=== PATIENT | female | born 1955 | race Caucasian/White ===

== ENCOUNTER → 2019-09-06 | Outpatient (CLI) | payer OTHER ==
[~2019-09-06] MED LIST: ATOR80 PO; AZOR; Aspir 8181 MG PO; BENAML20/5 PO; BP MED; BP PILL; BUPR100ER PO; CALCAVITDA PO; CENTRUM COMPLE1 EACH PO; CIPR500 PO; CLOP75 PO; CYCL10 PO; Chantix1 EACH PO; Citalopram HBr40 MG PO; ESCI10 PO; ESTPRO5 PO; HYDACE10B PO; HYDACE5 PO; HYOS0.375T PO; Hydrocodone-Ap1 EA20 PO; MORP15ER PO; MULVITMIND PO; OMEP20ER PO; OXYACE5T PO; PANT40 PO; PREG75 PO; PROM25 PO; Percocet 5-3251 EACH PO; Sudogest30 MG PO; TIZA4 PO; VALS80 PO; VITB100 PO; Zantac150 MG PO
[2019-09-06 14:24] LABS: U Amphetamine Screen Not Detected; U Barbituate Screen Not Detected; U Benzodiazapine Screen Not Detected; U Buprenorphine Screen Not Detected; U Cannabinoids Screen DETECTED; U Cocaine Screen Not Detected; U Methadone Screen Not Detected; U Methamphetamine Screen Not Detected; U Opiates Screen DETECTED; U Oxycodone Screen Not Detected; U Phencyclidine Screen Not Detected; U Propoxyphene Screen Not Detected
== END ==
LOC: LAB 10:07 → LAB SHORT 10:07
PROVIDERS: Family Medicine
DX: Z02.89 Encounter for other administrative examinations (principal); Z79.899 Other long term (current) drug therapy
CPT/HCPCS: G0480

== ENCOUNTER 2019-09-23 14:50 | Observation (INO) | payer OTHER ==
[~2019-09-23] VITALS: Ht 162.6 cm; Wt 74.1 kg
[~2019-09-23 14:50] MED LIST changes: -ATOR80 PO; -Aspir 8181 MG PO; -BUPR100ER PO; -CENTRUM COMPLE1 EACH PO; -CLOP75 PO; -Chantix1 EACH PO; -Citalopram HBr40 MG PO; -Hydrocodone-Ap1 EA20 PO; -PANT40 PO; -PREG75 PO; -Zantac150 MG PO
[2019-09-23 15:26] LABS: BASOPHILS ABSOLUTE AUTO 0.02 K/mm3 (0.00-0.23); BASOPHILS PERCENT AUTO 0 % (0-2); EOSINOPHILS ABSOLUTE AUTO 0.21 K/mm3 (0.00-0.68); EOSINOPHILS PERCENT AUTO 2 % (0-6); Hemoglobin 11.4 g/dL (11.5-16.0); IMMATURE GRAN ABSOLUTE AUTO 0.03 K/mm3 (0.00-0.10); IMMATURE GRAN PERCENT AUTO 0 % (0-1); LYMPHOCYTES ABSOLUTE AUTO 3.02 K/mm3 (0.84-5.20); LYMPHOCYTES PERCENT AUTO 35 % (21-46); MONOCYTES ABSOLUTE AUTO 0.39 K/mm3 (0.16-1.47); MONOCYTES PERCENT AUTO 5 % (4-13); Mean Corpuscular HGB 28.2 pg (26.0-34.0); Mean Corpuscular HGB Conc 31.7 g/dL (31.5-36.5); Mean Corpuscular Volume 89 fL (80-100); Mean Platelet Volume 10.9 fL (9.1-12.4); NEUTROPHILS ABSOLUTE AUTO 4.95 K/mm3 (1.96-9.15); NEUTROPHILS PERCENT AUTO 58 % (41-73); Platelet Count 186 K/mm3 (150-400); RDW Coefficient Variation 14.7 % (11.7-14.2); RDW Standard Deviation 48.4 fL (35.1-46.3); Red Blood Cell Count 4.04 M/mm3 (3.80-5.20); White Blood Cell Count 8.62 K/mm3 (4.00-11.30)
[2019-09-23 15:54] LABS: Alanine Aminotransfer (ALT/SGP 21 U/L (12-78); Albumin, Blood 3.5 g/dL (3.4-5.0); Alk Phos 72 U/L (50-136); Anion Gap 7 mmol/L (6-16); Aspartate Aminotrans (AST/SGOT 16 U/L (12-37); Bilirubin, Total 0.4 mg/dL (0.1-1.0); Blood Urea Nitrogen 13 mg/dL (8-24); Bun/Creatinine Ratio 19.3 (12.0-20.0); CO2, Blood 25 mmol/L (21-32); Calcium, Blood 8.9 mg/dL (8.5-10.1); Chloride, Blood 107 mmol/L (98-108); Creatinine, Blood 0.67 mg/dL (0.40-1.00); Globulin, Blood 3.6 g/dL (2.2-4.0); Glomerular Filtration Rate >60 (60-); Glucose, Blood 120 mg/dL (70-99); Potassium, Blood 3.8 mmol/L (3.5-5.5); Sodium, Blood 139 mmol/L (136-145); Total Protein, Blood 7.1 g/dL (6.4-8.2)
[2019-09-23 17:11] LABS: Source, Urine Clean Catch
[2019-09-23 17:18] LABS: Bilirubin, Urine Neg (Neg); Blood, Urine 1+ (Neg); Glucose Qualitative, Urine Neg (Neg); Ketones, Urine 1+ (Neg); Leukocyte Esterase, Urine 2+ (Neg); Nitrite, Urine Neg (Neg); Protein, Urine 1+ (Neg); Urobilinogen, Urine 1+ (Normal)
[2019-09-23 17:24] LABS: Appearance, Urine Clear (Clear); Color, Urine Yellow (P-Yellow)
[2019-09-23 17:25] LABS: Bacteria Mod /hpf; Mucus Light (0-Heavy); Red Blood Cells, Urine 0-2 /hpf (0-2); Squamous Epithelial Cells Few /hpf (Few)
[2019-09-23] MEDS ORDERED: PANT40 PO (19:46)
[2019-09-23] MEDS ORDERED: Citalopram HBr40 MG PO (19:47)
[2019-09-23] MEDS ORDERED: ATOR80 PO (19:47)
[2019-09-23] MEDS ORDERED: Chantix1 EACH PO (19:48)
[2019-09-23] MEDS ORDERED: Hydrocodone-Ap1 EA20 PO (19:50)
[2019-09-23] MEDS ORDERED: PREG75 PO (19:50)
[2019-09-23] MEDS ORDERED: BUPR100ER PO (19:51)
[2019-09-23] MEDS ORDERED: CLOP75 PO (19:53)
[2019-09-23] MEDS ORDERED: Zantac150 MG PO (19:54)
[2019-09-23] MEDS ORDERED: Aspir 8181 MG PO (19:54)
[2019-09-23] MEDS ORDERED: CENTRUM COMPLE1 EACH PO (20:41)
[2019-09-23 21:28] LABS: CHOL/HDL RATIO 2.6; Cholesterol 121 mg/dL (50-200); HDL Cholesterol 46 mg/dL (>39); Low Density Lipoprotein Chol 48 mg/dL (0-110); Triglycerides 134 mg/dL (30-160); Very Low Density Lipoprot Chol 26 mg/dL (6-32)
--- NOTE | 2019-09-24 06:34 | NUR ---
END OF SHIFT SUMMARY PT TO UNIT FROM ED, AMBULATES W/OUT ASSISTANCE. [place] WAS SPEAKING ALMOST FIULL SENTENCES BUT HAD DIFFICULT TIME FINDING SOME SIMPLE WORDS. THROUGHOUT THE NIGHT THIS HAS PROGRESSED TO WHERE THE PATIENTS SPEECH IS MORE FLUID AND CONCRETE. PT PRESENTS WITH WEAKNESS IN THE RIGHT SIDE, SOME R EYE EOM DEFICIT, AND SLIGHT R HAND CONTRACTURE. THIS IS REPORTED TO BE BASELINE FROM PAST CVA. PT HAS BEEN VERYT PLEASANT AND COOPERATIVE WITH STAFF. BP HAS REMAINED STABLE THIS SHIFT BUT HAVE HAD TO USE MANUAL BP AT TIMES MECHANICAL BP WASN'T READING CORRECTLY. BED ALARM IS IN PLACE PT CONTINUES TO NOT CALL STAFF TO GET OUT OF BED. PT TO HAVE MRI AND ECHO TODAY. WILL CONTINUE TO MONITOR UNTIL SHIFT CHANGE.
--- NOTE | 2019-09-24 09:17 | NUR ---
DR PORTILLO IN TO SEE PT WITH SON, SPEECH THERAPIST AND RN AT BEDSIDE. PER DR PORTILLO CANCEL CARDIOLOGY CONSULT, COPY MESSENGER NOTIFIED.
--- NOTE | 2019-09-24 11:01 | NUR ---
PT REQUESTING HOME PAIN MEDICATIONS, SON REPORTS PT TAKES NORCO 10/325MG TID AT HOME FOR CHRONIC BACK PAIN. DR PORTILLO NOTIFIED AND HOME NORCO DOSE ORDERED. WENT IN TO GIVE PT HOME DOSE, PT REPORTS 10/10 LOWER BACK PAIN. PT LOOKS AT THE PILL AND HANDS IT BACK TO ME STATING "I DONT WANT IT" PT CONTINUES TO REPORT LOWER BACK PAIN BUT WOULD NOT TAKE THE PAIN MEDS. NORCO WASTED AT THIS TIME, WILL CONT TO MONITOR.
--- NOTE | 2019-09-24 12:10 | NUR ---
PT TO IMAGING FOR MRI.
--- NOTE | 2019-09-24 14:55 | NUR ---
DISCHARGE INSTRUCTIONS REVIEWED WITH PT AND SON. IV DC'D INTACT, NO NEW HOME MEDS ORDERED. F/U APPT MADE WITH [facility]RIAG[facility] DR Jung CHANG DOES NOT HAVE AVAILABILITY. PT TO F/U WITH OUTPATIENT THERAPY ONCE PT GETS BRACE PER SON, SON REPORTS HE IS WORKING WITH INSURANCE FOR THE BRACE AND WILL MAKE SURE SHE GETS BACK INTO OUTPATIENT THERAPY WITH PCP. PT ESCORTD OUT VIA W/C TO D/C HOME WITH SON AT 1455.
== END 2019-09-24 14:55 | disposition home or self-care (01) ==
LOC: ER 14:50 → PCU 14:51
PROVIDERS: Physician Assistant; ADMIT Family Medicine
DX: I69.920 Aphasia following unspecified cerebrovascular disease (principal); I69.922 Dysarthria following unspecified cerebrovascular disease; I69.951 Hemiplegia and hemiparesis following unspecified cerebrovascular disease affecting right dominant side; I69.928 Other speech and language deficits following unspecified cerebrovascular disease; R00.1 Bradycardia, unspecified; I10 Essential (primary) hypertension; E78.5 Hyperlipidemia, unspecified; F32.9 Major depressive disorder, single episode, unspecified; M19.90 Unspecified osteoarthritis, unspecified site; K21.9 Gastro-esophageal reflux disease without esophagitis; F41.9 Anxiety disorder, unspecified; F17.210 Nicotine dependence, cigarettes, uncomplicated; Z90.49 Acquired absence of other specified parts of digestive tract; Z79.82 Long term (current) use of aspirin; Z79.899 Other long term (current) drug therapy
CPT/HCPCS: 36415; 70450; 70496; 70551; 71046; 80053; 80061; 81001; 83690; 85025; 87077; 87086; 87186; 90686; 92523; 93005; 93010; 93306; 93880; 96361; 96365-59; 97162; 97165; 97530; 99285-25; G0008; G0378; J0696; J1650; J7030; Q9967

== ENCOUNTER → 2020-02-06 | Outpatient (CLI) | payer OTHER ==
[~2020-02-06] MED LIST changes: +ATOR80 PO; +Aspir 8181 MG PO; +BUPR100ER PO; +CENTRUM COMPLE1 EACH PO; +CLOP75 PO; +Chantix1 EACH PO; +Citalopram HBr40 MG PO; +Hydrocodone-Ap1 EA20 PO; +PANT40 PO; +PREG75 PO; +Zantac150 MG PO
== END | disposition home or self-care (01) ==
LOC: LAB 13:57 → LAB SHORT 13:57
DX: R35.1 Nocturia (principal)
CPT/HCPCS: 87077; 87086; 87186

== ENCOUNTER → 2020-09-05 | Outpatient (CLI) | payer OTHER ==
[~2020-09-05] MED LIST changes: +ASPI325 PO; -CENTRUM COMPLE1 EACH PO; +CENTRUM SILVER1 EAC2 PO; +HYDROCODONE-AC1 EAC7 PO; +LIPITOR80 MG PO; +MYRBETRIQ50 MG PO; +PANTOPRAZOLE SO40 M2 PO
== END ==
LOC: LAB 16:14
DX: L02.611 Cutaneous abscess of right foot (principal)
CPT/HCPCS: 87070; 87075; 87077; 87147; 87186; 87205

== ENCOUNTER 2020-10-08 19:10 | Emergency (ER) | payer OTHER ==
[~2020-10-08] VITALS: Ht 157.5 cm; Wt 74.8 kg
[~2020-10-08 19:10] MED LIST changes: -ASPI325 PO; -HYDROCODONE-AC1 EAC7 PO; -LIPITOR80 MG PO; -MYRBETRIQ50 MG PO; -PANTOPRAZOLE SO40 M2 PO
[2020-10-08] MEDS ORDERED: PANTOPRAZOLE SO40 M2 PO (19:44)
[2020-10-08] MEDS ORDERED: MYRBETRIQ50 MG PO (19:44)
[2020-10-08] MEDS ORDERED: LIPITOR80 MG PO (19:44)
[2020-10-08] MEDS ORDERED: HYDROCODONE-AC1 EAC7 PO (19:44)
[2020-10-08] MEDS ORDERED: ASPI325 PO (19:45)
[2020-10-08 20:14] LABS: BASOPHILS ABSOLUTE AUTO 0.07 K/mm3 (0.00-0.23); BASOPHILS PERCENT AUTO 1 % (0-2); EOSINOPHILS ABSOLUTE AUTO 0.16 K/mm3 (0.00-0.68); EOSINOPHILS PERCENT AUTO 2 % (0-6); Hemoglobin 12.2 g/dL (11.5-16.0); IMMATURE GRAN ABSOLUTE AUTO 0.03 K/mm3 (0.00-0.10); IMMATURE GRAN PERCENT AUTO 0 % (0-1); LYMPHOCYTES ABSOLUTE AUTO 2.45 K/mm3 (0.84-5.20); LYMPHOCYTES PERCENT AUTO 30 % (21-46); MONOCYTES ABSOLUTE AUTO 1.01 K/mm3 (0.16-1.47); MONOCYTES PERCENT AUTO 12 % (4-13); Mean Corpuscular HGB 28.4 pg (26.0-34.0); Mean Corpuscular HGB Conc 32.1 g/dL (31.5-36.5); Mean Corpuscular Volume 88 fL (80-100); Mean Platelet Volume 10.5 fL (9.1-12.4); NEUTROPHILS ABSOLUTE AUTO 4.58 K/mm3 (1.96-9.15); NEUTROPHILS PERCENT AUTO 55 % (41-73); Platelet Count 218 K/mm3 (150-400); RDW Coefficient Variation 15.4 % (11.7-14.2); RDW Standard Deviation 49.1 fL (35.1-46.3)
[2020-10-08 20:28] LABS: International Normalized Ratio 1.09; Prothrombin Time Results 11.6 Sec (9.7-11.5)
[2020-10-08 20:34] LABS: Alanine Aminotransfer (ALT/SGP 21 U/L (12-78); Albumin, Blood 3.6 g/dL (3.4-5.0); Albumin/Globulin Ratio 0.9 (0.8-1.8); Alk Phos 79 U/L (50-136); Anion Gap 12 mmol/L (6-16); Aspartate Aminotrans (AST/SGOT 13 U/L (12-37); Bilirubin, Total 0.4 mg/dL (0.1-1.0); Blood Urea Nitrogen 19 mg/dL (8-24); Bun/Creatinine Ratio 19.5 (12.0-20.0); CO2, Blood 21 mmol/L (21-32); Calcium, Blood 8.3 mg/dL (8.5-10.1); Chloride, Blood 107 mmol/L (98-108); Creatinine, Blood 0.98 mg/dL (0.40-1.00); Glomerular Filtration Rate >60 (60-); Glucose, Blood 153 mg/dL (70-99); Potassium, Blood 3.1 mmol/L (3.5-5.5); Sodium, Blood 140 mmol/L (136-145); Total Protein, Blood 7.6 g/dL (6.4-8.2); Troponin I <0.015 ng/mL (0.000-0.040)
== END 2020-10-09 00:24 | disposition short-term general hospital (02) ==
LOC: ER 19:10
PROVIDERS: Physician Assistant
DX: I63.9 Cerebral infarction, unspecified (principal); R47.01 Aphasia; G81.91 Hemiplegia, unspecified affecting right dominant side; I10 Essential (primary) hypertension; Z79.899 Other long term (current) drug therapy; Z79.82 Long term (current) use of aspirin; Z87.891 Personal history of nicotine dependence
CPT/HCPCS: 36415; 70450; 70496; 70498; 80053; 84484; 85025; 85610; 93005; 93010; 99285-25; A9270; Q9967

== ENCOUNTER 2021-11-17 06:20 | Day surgery (SDC) | payer OTHER ==
[~2021-11-17] VITALS: Ht 162.6 cm; Wt 81.8 kg
[~2021-11-17 06:20] MED LIST changes: +ASPI325 PO; +HYDROCODONE-AC1 EAC7 PO; +LIPITOR80 MG PO; +MYRBETRIQ50 MG PO; +PANTOPRAZOLE SO40 M2 PO
--- NOTE | 2021-11-17 06:45 | NUR ---
11/17/21 0645 Don Guzman TETRACAINE AT 0637 PLEDGET AT 0639 IN RIGHT EYE PER ORDERS
== END 2021-11-17 08:25 | disposition home or self-care (01) ==
LOC: ORSCSDS 06:20
PROVIDERS: Ophthalmology
PROC: 08RJ3JZ Replacement of Right Lens with Synthetic Substitute, Percutaneous Approach (ICD-10-PCS; principal; 2021-11-17 07:30)
DX: H25.13 Age-related nuclear cataract, bilateral (principal); I10 Essential (primary) hypertension; K21.9 Gastro-esophageal reflux disease without esophagitis; Z86.73 Personal history of transient ischemic attack (TIA), and cerebral infarction without residual deficits; Z79.899 Other long term (current) drug therapy; Z79.82 Long term (current) use of aspirin
CPT/HCPCS: J2001; J2250; J3301; V2632

== ENCOUNTER 2025-01-24 22:48 | Emergency (ER) | payer OTHER ==
[~2025-01-24] VITALS: Ht 165.1 cm; Wt 68.0 kg
[2025-01-24 23:01] VITALS: BP 109/80
[2025-01-25] MEDS ORDERED: Lidocaine/Tetracaine/Epinephr 3 ML GEL SYRINGE TOP ONE (00:06)
== END 2025-01-25 01:55 | disposition home or self-care (01) ==
LOC: ER 22:48
DX: S01.01XA Laceration without foreign body of scalp, initial encounter (principal); F10.90 Alcohol use, unspecified, uncomplicated; E78.5 Hyperlipidemia, unspecified; I10 Essential (primary) hypertension; W01.0XXA Fall on same level from slipping, tripping and stumbling without subsequent striking against object, initial encounter; Z86.73 Personal history of transient ischemic attack (TIA), and cerebral infarction without residual deficits; Z79.82 Long term (current) use of aspirin; Z79.899 Other long term (current) drug therapy
CPT/HCPCS: 99283